=== PATIENT | male | born 1980 | race Caucasian/White ===

== ENCOUNTER 2017-07-04 15:56 | Emergency (ER) | payer MEDICAID, OTHER ==
[2017-07-04] MEDS: HYDROCODONE/APAP (5/325) TAB PO ×2 (19:04→19:16)
[2017-07-04] MEDS: DIPHTH/TET/ACEL PERTUSS (ADULT) 0.5 ML VIAL IM* (19:07)
== END 2017-07-04 20:57 | disposition home or self-care (01) ==
LOC: FTE 15:56
DX: S62.636A Displaced fracture of distal phalanx of right little finger, initial encounter for closed fracture (principal); S67.22XA Crushing injury of left hand, initial encounter; S62.647A Nondisplaced fracture of proximal phalanx of left little finger, initial encounter for closed fracture; W23.1XXA Caught, crushed, jammed, or pinched between stationary objects, initial encounter; Y92.9 Unspecified place or not applicable; Z23 Encounter for immunization
CPT/HCPCS: 29125; 73130-50; 90471; 90715; 99283-25